=== PATIENT | male | born 1970 | race Hispanic/Latino ===

== ENCOUNTER 2024-09-16 15:34 | Emergency (ER) | payer OTHER ==
[~2024-09-16] VITALS: Ht 167.6 cm; Wt 79.0 kg
[2024-09-16 15:44] VITALS: PULSE 85; RESP 18; TEMP 98.9; O2SAT 98
[2024-09-16] MEDS ORDERED: LISINOPRIL10 MG PO (15:49)
[2024-09-16] MEDS ORDERED: GENTAMICIN SULFA5 ML OD (16:41)
[2024-09-16] MEDS: TETRACAINE HCL 0.5% OPTH SOLN 4 ML BTL OP ONE (16:43)
[2024-09-16] MEDS: FLUORESCEIN SOD(OPTH) 1 MG STRP OP ONE (16:43)
== END 2024-09-16 16:54 | disposition home or self-care (01) ==
LOC: FSED 15:38
DX: H57.11 Ocular pain, right eye (principal); H10.89 Other conjunctivitis; I10 Essential (primary) hypertension
CPT/HCPCS: 99284